=== PATIENT | female | born 1970 | race Caucasian/White ===

== ENCOUNTER → 2020-09-01 | Outpatient (CLI) | payer OTHER ==
--- NOTE | 2020-09-01 12:28 | RAD ---
EXAM: Lumbar spine, 3 views; pelvis and left hip, 3 views. HISTORY: Pain. COMPARISON: None. FINDINGS: Lumbar spine: 3 views lumbar spine are obtained. There is no listhesis. The vertebral bodies are norm al in height. There is degenerative endplate remodeling with disc space narrowing and osteophytosis a t L4-L5. There is additional mild endplate remodeling at the remainder of the lower thoracic and lumb ar levels. There is facet arthropathy predominantly at the lower lumbar levels. Pelvis and left hip: A frontal view the pelvis and 2 views of the left hip are obtained. There is no fracture, dislocation or subluxation. The femoral heads are normal in configuration. IMPRESSION: 1. Multilevel degenerative change involving the lumbar spine, primarily at L4-L5. 2. No acute osseous finding. Electronically signed by: Arlene Torres MD (09/01/2020 12:25 PM) [id number]
== END ==
LOC: RAD 11:11
PROVIDERS: ATTEND Family Medicine
DX: Z02.71 Encounter for disability determination (principal); M47.816 Spondylosis without myelopathy or radiculopathy, lumbar region; M48.061 Spinal stenosis, lumbar region without neurogenic claudication; M25.78 Osteophyte, vertebrae
CPT/HCPCS: 72100; 73502